=== PATIENT | female | born 1965 | race Two or more races ===

== ENCOUNTER 2024-05-05 13:55 | Emergency (ER) | payer BC, OTHER ==
[~2024-05-05] VITALS: Ht 152.4 cm; Wt 71.3 kg
[2024-05-05] MEDS: ASPirin 325 MG TAB PO ONE (14:19)
[2024-05-05 14:20] VITALS: RESP 18
[2024-05-05 14:33] LABS: Basophils # (auto) 0 10 ^3/uL (0-0.2); Basophils % (auto) 0.8 % (0.0-2.0); Eosinophils # (auto) 0.1 10 ^3/uL (0-0.8); Eosinophils % (auto) 1.3 % (0.0-7.0); Hematocrit 44.2 % (36.0-46.0); Hemoglobin 14.9 g/dL (12.2-16.2); Lymphocytes % (auto) 35.6 % (10.0-50.0); Mean Corpuscular Hemoglobin 29.7 pg (28.0-32.0); Mean Corpuscular Hgb Conc. 33.7 g/dL (32.0-36.0); Mean Corpuscular Volume 88.2 fL (80.0-100.0); Monocytes # (auto) 0.3 10 ^3/uL (0-1.3); Monocytes % (auto) 5.2 % (0.0-12.0); Neutrophils # (auto) 3.2 10 ^3/uL (1.6-8.6); Neutrophils % (auto) 57.1 % (37.0-80.0); Nucleated Red Blood Cells % 0.1 %; Platelet Count (auto) 312 10^3/uL (140-450); Red Blood Cells 5.01 10^6/uL (4.0-5.20); Red Cell Distribution Width 13.1 % (11.8-14.3); White Blood Cell 5.7 10^3/uL (4.4-10.8)
[2024-05-05 14:36] LABS: Chloride 107 mmol/L (98-107); Potassium 4.1 mmol/L (3.5-5.1); Sodium 141 mmol/L (136-145)
[2024-05-05 14:37] LABS: Anion Gap 7 (5-15); Calcium 10.3 mg/dL (8.7-10.4); Carbon Dioxide 27 mmol/L (20-31)
[2024-05-05 14:42] LABS: BUN/Creatinine Ratio 20.3 (10.0-20.0); Blood Urea Nitrogen 16 mg/dL (9-23); Glucose 160 mg/dL (74-106)
[2024-05-05] MEDS: IOHEXOL 350 MG/ML 100ML IJ ONE (17:28)
[2024-05-05 17:33] VITALS: PULSE 86; RESP 17; O2SAT 97
[2024-05-05 19:35] LABS: Urine Bacteria None Seen /hpf (None Seen)
[2024-05-05 20:01] LABS: Urine Blood Negative /uL (Negative); Urine Clarity Clear (Clear); Urine Color Light-Yellow (Yellow); Urine Protein, UAD Negative (Negative); Urine Specific Gravity 1.047 (1.001-1.035); Urine Urobilinogen Normal (Negative); Urine WBC 1 /hpf (0 - 5); Urine pH 6.5 (5.0-9.0)
[2024-05-05 20:13] VITALS: BP 112/64; PULSE 74; PULSE 87; RESP 19; RESP 20; TEMP 98.3; O2SAT 96; O2SAT 97
== END 2024-05-05 20:33 | disposition short-term general hospital (02) ==
LOC: ER 13:59
DX: I63.9 Cerebral infarction, unspecified (principal); I20.0 Unstable angina
CPT/HCPCS: 36415; 70450; 70496; 71045; 80048; 81001; 82962; 84484; 85025; 93005; 99291; Q9967